=== PATIENT | female | born 1945 | race Caucasian/White ===

== ENCOUNTER 2025-01-15 08:45 | Outpatient (RCR) | payer MEDICARE, OTHER, SELFPAY ==
--- NOTE | 2024-11-25 10:56 | PTOPEVAL1 ---
Assessment and note entered by Bethany Dhillon, PT Evaluation Information Assessment Status Evaluation Diagnosis Pain in right shoulder ICD-10 Condition Codes (PT) Pain in right shoulder M25.511 Subjective Information Pt reports pain in right shoulder well over a year. States used to wake her up at night. Used to have to hold it to get out of bed in the morning. Reports it snaps and pops. Can't throw a ball over handed Has been trying to use her arm more, doesn't want to just sit around. Stops doing activities if it starts to bother her. Prednisone for her hip helped her shoulder. Voltaren gel Pt reports aggravating factors being sleeping on right, reaching out to the side, reaching overhead Alleviating factors: resting Reported Pain Level Pain Score 2: Self Report Assessment PT Clinical Summary Pt presents with c/o right shoulder pain that has persisted for approx one year without traumatic incident. Pt reports it varies in intensity, is aggravated with reaching out to side and overhead. Evaluation shows rounded shoulder and kyphotic postures, decreased ROM and strength right shoulder as compared to left, and possible RTC tear though is possible is just inflammatory response causing false (+) in special testing. Pt will benefit from PT to address deficits, improve range, strength, and pain and meet overall goals. Plan of Care Interventions Electrical Stimulation,Hot Pack/Cold Pack,Manual Therapy,Neuro Re-education,Patient/Caregiver Education,Therapeutic Activities,Therapeutic Exercise,Self-Care/Home Management,Ultrasound, Other PT Services Indicated Yes Treatment Frequency and 2x weekly x 16 visits Duration These treatments will address the objective and functional deficits as defined above. The patient will be advanced safely and appropriately in order for the patient to progress towards his/her prior level of function. Additional exercises will be introduced and as well as a comprehensive home exercise program upon discharge, if needed, ?to ensure carryover of functional gains achieved in the clinic. This treatment plan has been reviewed and agreement upon by the patient.
--- NOTE | 2024-11-25 10:56 | OPREHPOC ---
Outpatient Therapy Plan of Care This is a Multidisciplinary Plan of Care that may contain components documented by all disciplines (PT, OT, and ST.) PT Problem 1 PT Problem #1 Knowledge Deficit PT Goal 1 Goal / Goal Update Pt will be independent in HEP Pt will verbalize understanding of diagnosis and prognosis Target Visit 8 PT Problem 2 PT Problem #2 Pain PT Goal 1 Goal / Goal Update Pt will report lowest pain rating at 0/10 to show improvement in overall discomfort Target Visit 8 PT Goal 2 Goal / Goal Update Pt will report greatest pain level at 3/10 or less to improve ADLs and activities Target Visit 16 PT Problem 3 PT Problem #3 Impaired Range of Motion PT Goal 1 Goal / Goal Update Pt will demonstrate equal ROM RUE to LUE to return to PLOF Target Visit 16 PT Problem 4 PT Problem #4 Impaired Strength PT Goal 1 Goal / Goal Update Pt will demonstrate equal strength RUE to LUE Target Visit 16
--- NOTE | 2024-12-18 09:54 | PTOPPROG ---
Assessment and note entered by Bethany Dhillon, PT Evaluation Information Assessment Status Progress Diagnosis Pain in right shoulder ICD-10 Condition Codes (PT) Pain in right shoulder M25.511 Subjective Information Feels like shoulder is doing better, but sitting and reaching out to the side is still hard. Pops going out to the side. Has been doing her exercises. Only had a problem one night recently with sleeping. But has also been using Voltaren more lately but has less often instances of high levels of pain Doesn't feel as rounded as used to. Improvement: 50% Assessment PT Clinical Summary Pt has attended therapy consistently for her right shoulder pain. She reports less instances of high levels of pain, though has not reached a point of 0/10 pain. She continues to demonstrate crepitus and clicking with her active and passive ROM though is also lessened in intensity and frequency . Postures are improved and patient is more aware of her scapular positioning with activities. Cont to have special testing suggestive of internal dysfunction. Shifting therapy focus to increasing strength in this phase to improve mobility and function with less pain. Plan of Care Interventions Electrical Stimulation,Hot Pack/Cold Pack,Manual Therapy,Neuro Re-education,Patient/Caregiver Education,Therapeutic Activities,Therapeutic Exercise,Self-Care/Home Management,Ultrasound, Other PT Services Indicated Yes Treatment Frequency and 2x weekly x 8 visits Duration These treatments will address the objective and functional deficits as defined above. The patient will be advanced safely and appropriately in order for the patient to progress towards his/her prior level of function. Additional exercises will be introduced and as well as a comprehensive home exercise program upon discharge, if needed, ?to ensure carryover of functional gains achieved in the clinic. This treatment plan has been reviewed and agreement upon by the patient.
--- NOTE | 2025-01-15 09:43 | PTOPDC ---
Assessment and note entered by Bethany Dhillon, PT Evaluation Information Assessment Status Discharge Diagnosis Pain in right shoulder ICD-10 Condition Codes (PT) Pain in right shoulder M25.511 Subjective Information Improvement: 50% last few days feels more pain thinking since doing a stretch at therapy has more pain. Has used Voltaren gel twice today. Still has some popping, thinks is less. lifting and washing counter tops will pop still. Washing counter tops is painful. Reported Pain Level Pain Score 2: Self Report Assessment PT Clinical Summary Pt has attended therapy consistently for right shoulder pain for 15 visits. Her highest pain level has reduced from 6/10 to 3/10 though she continues to use Voltaren gel often to assist in this. She does show also improvement in active ROM of the RUE and reports less popping with movement . She still has significant weakness in RUE though is not far behind her LUE with resisted testing. She does show (+) testing for possible labral and supraspinatus damage as well. We discussed referral to orthopedics for another opinion though at the moment she reports she does not want to pursue that path. She was educated she may also return to therapy for a tune up should she have a flare up in symptoms in the future for conservative treatment with a new prescription. Pt is thus being discharged for max benefit being met at this time. Plan of Care PT Services Indicated No
== END 2025-01-15 10:44 | disposition home or self-care (01) ==
LOC: ANHHIPT 08:45
PROVIDERS: PCP Nurse Practitioner Family; Visit Provider Nurse Practitioner Family
DX: M25.511 Pain in right shoulder (principal)
CPT/HCPCS: 97014; 97035; 97110; 97112; 97140; 97161; 97750; G0283